=== PATIENT | female | born 1985 | race Caucasian/White ===

== ENCOUNTER 2022-05-28 07:47 | Outpatient (CLI) | payer BC | END 2022-05-28 07:48 | disposition home or self-care (01) | LOC: CSHULT 07:47 | PROVIDERS: ATTEND Physician Assistant Medical | DX: R10.12 Left upper quadrant pain (principal); R11.2 Nausea with vomiting, unspecified | CPT/HCPCS: 76705 ==

== ENCOUNTER 2024-12-21 19:44 | Emergency (ER) | payer BC | END 2024-12-21 21:54 | disposition home or self-care (01) | LOC: CSHERS 19:44 | DX: S63.502A Unspecified sprain of left wrist, initial encounter (principal); X50.1XXA Overexertion from prolonged static or awkward postures, initial encounter | CPT/HCPCS: 99283 ==